=== PATIENT | male | born 1985 | race Two or more races ===

== ENCOUNTER 2019-11-21 17:46 | Emergency (ER) | payer OTHER ==
[~2019-11-21] VITALS: Ht 190.5 cm; Wt 87.5 kg
[2019-11-21 17:58] VITALS: BP 133/81
== END 2019-11-21 23:59 | disposition left against medical advice (07) ==
LOC: ED 21:15
DX: R12 Heartburn (principal); M54.9 Dorsalgia, unspecified; Z53.21 Procedure and treatment not carried out due to patient leaving prior to being seen by health care provider
CPT/HCPCS: 93005